=== PATIENT | female | born 1945 | race Caucasian/White ===

== ENCOUNTER 2023-12-31 09:23 | Outpatient (CLI) | payer MEDICARE | END 2023-12-31 09:24 | disposition home or self-care (01) | LOC: CSHMAMMO 09:23 | PROVIDERS: ATTEND Family Medicine | DX: M80.08XA Age-related osteoporosis with current pathological fracture, vertebra(e), initial encounter for fracture (principal); S22.080S Wedge compression fracture of T11-T12 vertebra, sequela; M85.851 Other specified disorders of bone density and structure, right thigh; M85.852 Other specified disorders of bone density and structure, left thigh | CPT/HCPCS: 77080 ==